=== PATIENT | male | born 1985 | race African-American/Black ===

== ENCOUNTER 2022-09-09 14:46 | Emergency (ER) | payer SELFPAY ==
[~2022-09-09] VITALS: Ht 167.6 cm; Wt 80.0 kg
[2022-09-09] MEDS ORDERED: CYCLOBENZAPRINE 10MG TABLET PO ONE (16:45)
[2022-09-09] MEDS ORDERED: KETOROLAC 30MG/ML VIAL IM ONE (16:45)
[2022-09-09 17:26] VITALS: BP 140/102
[2022-09-09] MEDS ORDERED: CYCL10TA21 MT (17:29)
[2022-09-09] MEDS ORDERED: NAPR-1176 MT (17:29)
== END 2022-09-09 18:16 | disposition home or self-care (01) ==
LOC: ER 14:46
DX: M25.561 Pain in right knee (principal); Z59.00 Homelessness unspecified
CPT/HCPCS: 73562; 96372; 99283; J1885